=== PATIENT | female | born 1990 | race Caucasian/White ===

== ENCOUNTER 2018-04-20 09:38 | Outpatient (CLI) | payer OTHER ==
[2018-04-20 10:41] LABS: CARBON DIOXIDE 26.4 mmol/L (21-32); CREATININE 0.7 mg/dL (0.6-1.3); POTASSIUM 4.4 mmol/L (3.5-5.1)
[2018-04-20 10:56] LABS: ALBUMIN 3.8 g/dL (3.4-5.0); THYROID STIMULATING HORMONE 0.68 uIU/mL (0.34-3.74); TOTAL BILIRUBIN 0.6 mg/dL (0.0-1.0)
[2018-04-20 22:16] LABS: CHOL/HDL RATIO 3.8 (1-4.5)
== END 2018-04-20 19:35 | disposition home or self-care (01) ==
LOC: MLB 09:38
DX: Z00.01 Encounter for general adult medical examination with abnormal findings (principal); E55.9 Vitamin D deficiency, unspecified; E04.9 Nontoxic goiter, unspecified
CPT/HCPCS: 36415; 80053; 82306; 84443